=== PATIENT | female | born 1955 | race Caucasian/White ===

== ENCOUNTER 2017-03-31 08:17 | Day surgery (SDC) | payer MEDICAID ==
[2017-03-31] MEDS ORDERED: LIDOCAINE 1% 5 ML SDV ID PRN (08:43)
[2017-03-31] MEDS ORDERED: LR 1,000 ML IV ONE (08:43)
[2017-03-31] MEDS ORDERED: LIDOCAINE 1% 2 ML INJ ONE (08:45)
[2017-03-31] MEDS ORDERED: MIDAZOLAM 2 MG/2 ML VIAL ONE (10:09)
[2017-03-31] MEDS ORDERED: PROPOFOL/EMULSION 500 MG/50 ML BOTTLE IV ONE (10:10)
[2017-03-31] MEDS ORDERED: LIDOCAINE 2% 5 ML SDV ONE (10:10)
--- NOTE | 2017-03-31 11:05 | GPN ---
[f rep st] PROCEDURE NOTE PREPROCEDURE DIAGNOSIS: Need for screening colonoscopy. POSTPROCEDURE DIAGNOSIS: Colon polyps, status post removal. PROCEDURE: Colonoscopy with biopsy, colonoscopy with snare. MEDICATIONS: Monitored anesthesia care. INDICATIONS: The patient is a 61-year-old female who is here for a screening colonoscopy. The risk s and the benefits of the procedure were discussed with the patient and consent obtained. The risks include, but not limited to, bleeding, perforation, and risks related to sedation. The patient is ASA class 2. DESCRIPTION OF PROCEDURE: The adult colonoscope was advanced into the terminal ileum, which appeare d normal. The appendiceal orifice, cecum, and ileocecal valve were normal. In the ascending colon, there was a 4 mm polyp which was removed using cold snare polypectomy and sent off to pathology. T he hepatic flexure, transverse colon, splenic flexure, and descending colon were normal. In the sig moid colon, there was an 8 mm pedunculated polyp which was removed using hot snare polypectomy techn ique and retrieved for pathology. The remainder of the colon, including retroflexed views in the re ctum, was normal. IMPRESSION: Colon polyps, status post removal using cold snare polypectomy and hot snare polypectom y technique. RECOMMENDATIONS: 1. Advance diet as tolerated. 2. Discharge to home with escort. 3. Follow up on the final pathology results. Results available within 10 days. 4. Repeat colonoscopy pending the biopsy results. A repeat colonoscopy should be scheduled in 5 ye ars if either polyp is found to be adenomatous. Thank you for allowing me to participate in the care of your patient. Please do not hesitate to moe solo with questions. /[id number]/MODL
== END 2017-03-31 12:05 | disposition home or self-care (01) ==
LOC: FSGY 08:17 → EEVIPCON 08:17 → FSGY 12:05
PROVIDERS: ATTEND Internal Medicine Gastroenterology
PROC: 0DBK8ZX Excision of Ascending Colon, Via Natural or Artificial Opening Endoscopic, Diagnostic (ICD-10-PCS; principal; 2017-03-31 09:30)
PROC: 0DBN8ZX Excision of Sigmoid Colon, Via Natural or Artificial Opening Endoscopic, Diagnostic (ICD-10-PCS; principal; 2017-03-31 09:30)
DX: Z12.11 Encounter for screening for malignant neoplasm of colon (principal); K63.5 Polyp of colon; Z83.71 Family history of colonic polyps; Z87.442 Personal history of urinary calculi
CPT/HCPCS: J2250; J2704